=== PATIENT | female | born 1950 | race Two or more races ===

== ENCOUNTER 2023-06-26 16:29 | Emergency (ER) | payer OTHER, MEDICARE, MEDICAID ==
[~2023-06-26] VITALS: Ht 152.4 cm; Wt 45.0 kg
[2023-06-26] MEDS: LIDOCAINE 1% HCL (LOCAL ANESTH.) INJ 20ML MDV IJ ONE (18:16)
[2023-06-26 18:51] VITALS: BP 120/72; TEMP 98.4
[2023-06-26 18:54] VITALS: PULSE 90; RESP 18; O2SAT 99
== END 2023-06-26 19:08 | disposition home or self-care (01) ==
LOC: ER 16:29 → EDBD 16:29 → ER 19:08
DX: S01.81XA Laceration without foreign body of other part of head, initial encounter (principal); Z86.73 Personal history of transient ischemic attack (TIA), and cerebral infarction without residual deficits; W01.198A Fall on same level from slipping, tripping and stumbling with subsequent striking against other object, initial encounter; Y93.89 Activity, other specified; Y92.89 Other specified places as the place of occurrence of the external cause; Y99.8 Other external cause status
CPT/HCPCS: 12013; 70450; 99284; J2001